=== PATIENT | female | born 1990 | race Caucasian/White ===

== ENCOUNTER 2019-10-09 19:25 | Emergency (ER) | payer BC ==
[2019-10-09] MEDS ORDERED: diphenhydrAMINE 50 MG CAP PO STA (20:44)
[2019-10-09] MEDS ORDERED: predniSONE 50 MG TAB PO STA (20:44)
[2019-10-09] MEDS ORDERED: FAMOTIDINE 20 MG TAB PO STA (20:45)
--- NOTE | 2019-10-09 20:51 | ED ---
General Adult HPI - General Chief complaint: Allergic Reaction Stated complaint: Allergic reaction Time Seen by Provider: 10/09/19 20:37 Source: patient, family, RN notes reviewed Mode of arrival: ambulatory Limitations: no limitations - History of Present Illness Initial comments: Patient is a pleasant 29-year-old female presenting to the emergency department with concerns for ALLERGIC reaction. Patient received cimzia from her fountain waitress/waiter. Patient states several hours later she started developing hives. Patient states hives are waxing and waning and are mostly on her back. Patient feels slightly swollen and her face. No dyspnea. No swelling of the throat or tongue or lips. No history of similar symptoms previously. Patient received her injection close to 12 hours ago. - Related Data Previous Rx's Medication Instructions Recorded predniSONE 20 mg PO BID #10 tab 10/09/19 Allergies Allergy/AdvReac Type Severity Reaction Status Date / Time certolizumab pegol Allergy Rash/Hives Verified 10/09/19 20:19 [From Cimzia] Review of Systems ROS Statement: Those systems with pertinent positive or pertinent negative responses have been documented in the HPI. ROS Other: All systems not noted in ROS Statement are negative. Constitutional: Denies: fever Eyes: Denies: eye pain ENT: Denies: ear pain Respiratory: Denies: cough Cardiovascular: Denies: chest pain Endocrine: Denies: fatigue Gastrointestinal: Denies: abdominal pain Genitourinary: Denies: dysuria Musculoskeletal: Denies: back pain Skin: Reports: rash Neurological: Denies: weakness Past Medical History Past Medical History: Rheumatoid Arthritis (RA) Additional Past Medical History / Comment(s): vit D, iron, carpal tunnel History of Any Multi-Drug Resistant Organisms: None Reported Past Surgical History: No Surgical Hx Reported Past Psychological History: No Psychological Hx Reported Smoking Status: Light tobacco smoker Past Alcohol Use History: Occasional Past Drug Use History: None Reported General Exam Limitations: no limitations General appearance: alert, in no apparent distress Head exam: Present: normocephalic Eye exam: Present: normal appearance, PERRL ENT exam: Present: normal oropharynx, other (There may be a trace amount of swelling of the upper maxillary region) Neck exam: Present: normal inspection Respiratory exam: Present: normal lung sounds bilaterally Cardiovascular Exam: Present: regular rate, normal rhythm GI/Abdominal exam: Present: soft. Absent: tenderness Extremities exam: Present: normal inspection Neurological exam: Present: alert Psychiatric exam: Present: normal affect, normal mood Skin exam: Present: urticaria (Mild urticarial rash on the back) Course Vital Signs 10/09/19 20:13 Temperature 98.6 F Pulse Rate 113 H Respiratory 18 Rate Blood Pressure 129/92 O2 Sat by Pulse 96 Oximetry Disposition Clinical Impression: Allergic reaction Disposition: HOME SELF-CARE Condition: Stable Instructions (If sedation given, give patient instructions): General Allergic Reaction (ED) Additional Instructions: Please do not receive injections of this medication again until discussion with your fountain waitress/waiter. Return for difficulty breathing, swelling of the throat or tongue or lips, worsening symptoms or other concerns. Continue Benadryl 25-50 mg every 6 hours for the next 5 days. Prescription sent to [facility] pharmacy on the [address]. Prescriptions: predniSONE 20 mg PO BID #10 tab Is patient prescribed a controlled substance at d/c from ED?: No Referrals: Presley Gallegos MD [Primary Care Provider] - 1-2 days Time of Disposition: 20:49
[2019-10-09 22:33] VITALS: RESP 20
[2019-10-10 00:04] VITALS: BP 123/77; PULSE 90
[2019-10-10 00:10] VITALS: TEMP 98.4
== END 2019-10-10 00:10 | disposition home or self-care (01) ==
LOC: EC 19:25
DX: T78.40XA Allergy, unspecified, initial encounter (principal); F17.210 Nicotine dependence, cigarettes, uncomplicated; Z88.8 Allergy status to other drugs, medicaments and biological substances
CPT/HCPCS: 99283; J7512

== ENCOUNTER 2020-03-21 22:47 | Emergency (ER) | payer BC, OTHER ==
[2020-03-21 23:04] VITALS: BP 134/92; PULSE 100; RESP 18; TEMP 99
[2020-03-21] MEDS ORDERED: methylPREDNISolone SOD SUCCI 125 MG/2 ML VIAL IM ONE (23:40)
[2020-03-21] MEDS ORDERED: KETOROLAC 30 MG/ML 1 ML VIAL IM STA (23:40)
--- NOTE | 2020-03-22 00:03 | ED ---
General Adult HPI - General Chief complaint: Extremity Problem,Nontraumatic Stated complaint: Pain in Feet Time Seen by Provider: 03/21/20 23:14 Source: patient, family Mode of arrival: wheelchair Limitations: no limitations - History of Present Illness Initial comments: 30-year-old female patient presents to the emergency department today for evaluation of bilateral ankle pain and swelling. Patient states she is also having pain to her shoulders and hips. Patient does have a history of rheumatoid arthritis, not currently on any maintenance medications. States that she does see a echo vascular tech however she is trying to conceive and therefore unable to take anything. States she has been taking up to 2g of ibuprofen daily without relief. She is reporting swelling to the bilateral ankles. Denies any fever or chills. Denies any calf pain or tenderness. Denies history of DVT. Patient denies any recent rash, cough, shortness of breath, chest pain, abdominal pain, nausea, vomiting, diarrhea, constipation, back pain, numbness, tingling, dizziness, weakness, hematuria, dysuria, urinary urgency, urinary frequency, headache, visual changes, or any other complaints. - Related Data Previous Rx's Medication Instructions Recorded predniSONE [Deltasone] 20 mg PO BID #10 tab 10/09/19 Ketorolac [Toradol] 10 mg PO Q6HR #12 tab 03/22/20 predniSONE 50 mg PO DAILY #5 tablet 03/22/20 Allergies Allergy/AdvReac Type Severity Reaction Status Date / Time certolizumab pegol Allergy Rash/Hives Verified 03/21/20 23:04 [From Harleen] Review of Systems ROS Statement: Those systems with pertinent positive or pertinent negative responses have been documented in the HPI. ROS Other: All systems not noted in ROS Statement are negative. Past Medical History Past Medical History: Rheumatoid Arthritis (RA) Additional Past Medical History / Comment(s): vit D, iron, carpal tunnel History of Any Multi-Drug Resistant Organisms: None Reported Past Surgical History: No Surgical Hx Reported Past Psychological History: Anxiety Smoking Status: Light tobacco smoker Past Alcohol Use History: Occasional Past Drug Use History: None Reported General Exam Limitations: no limitations General appearance: alert, in no apparent distress, other (This is a well- developed, well-nourished adult female patient in no acute distress. Vital signs upon presentation are temperature 99.0F, pulse 100, respirations 18, blood pressure 134/92, pulse ox 100% on room air.) Respiratory exam: Present: normal lung sounds bilaterally. Absent: respiratory distress, wheezes, rales, rhonchi, stridor Cardiovascular Exam: Present: regular rate, normal rhythm, normal heart sounds. Absent: systolic murmur, diastolic murmur, rubs, gallop, clicks GI/Abdominal exam: Present: soft, normal bowel sounds. Absent: distended, tenderness, guarding, rebound, rigid Extremities exam: Present: full ROM, normal capillary refill, other (Patient has bilateral ankle swelling. Skin is otherwise pink, warm, dry. Cap refills less than 3 seconds. Pedal and posttibial pulses are 2+ and equal bilaterally.). Absent: normal inspection, tenderness, pedal edema, joint swelling, calf tenderness Neurological exam: Present: alert, oriented X3, CN II-XII intact Psychiatric exam: Present: normal affect, normal mood Skin exam: Present: warm, dry, intact, normal color. Absent: rash Course Vital Signs 03/21/20 23:01 Temperature 99.0 F Pulse Rate 100 Respiratory 18 Rate Blood Pressure 134/92 O2 Sat by Pulse 100 Oximetry Medical Decision Making - Medical Decision Making 30-year-old female patient presents to the emergency department today for evaluation of bilateral ankle pain and swelling. She is also reporting shoulder pain and hip pain. Physical examination did reveal swelling to the bilateral ankles. No erythema. Good neurovascular status. test was negative. We will start patient on a course of steroids and Toradol for symptom relief. She is educated not to take the ibuprofen and Toradol to same time. She is instructed to take all medications with meals. She is instructed to follow up with a echo vascular tech for further evaluation as soon as possible. Return parameters were discussed in detail. She verbalizes understanding and agrees with this plan. - Lab Data Lab Results 03/21/20 Range/Units 23:24 Urine HCG, Qual Not Detected (Not Detectd) Disposition Clinical Impression: Rheumatoid arthritis flare Disposition: HOME SELF-CARE Condition: Good Instructions (If sedation given, give patient instructions): Rheumatoid Arthritis (ED) Additional Instructions: Take medications as directed. Follow-up with your primary care physician echo vascular tech for further evaluation as soon as possible. Take your medications with food. Return to the emergency department immediately for any new, worsening, or concerning symptoms. Prescriptions: predniSONE 50 mg PO DAILY #5 tablet Ketorolac [Toradol] 10 mg PO Q6HR #12 tab Is patient prescribed a controlled substance at d/c from ED?: No Referrals: Presley Gallegos MD [Primary Care Provider] - 1-2 days Time of Disposition: 00:03
== END 2020-03-22 00:36 | disposition home or self-care (01) ==
LOC: EC 22:47
DX: M06.9 Rheumatoid arthritis, unspecified (principal); F17.200 Nicotine dependence, unspecified, uncomplicated; Z88.8 Allergy status to other drugs, medicaments and biological substances
CPT/HCPCS: 96372 ×2; 99283; 81025; J2930; J1885

== ENCOUNTER → 2022-03-19 | Outpatient (CLI) | payer OTHER ==
[2022-03-19 14:30] LABS: Basophils # (A) 0.02 X 10*3/uL (0.00-0.10); Basophils % (A) 0.3 %; Eosinophils % (A) 2.6 %; HCT 41.3 % (37.2-46.3); HGB 12.9 g/dL (12.0-15.0); Immature Grans, Automated 0.3 %; Lymphocytes # (A) 2.31 X 10*3/uL (0.90-5.00); Lymphocytes % (A) 30.2 %; MCH 25.8 pg (27.0-32.0); MCHC 31.2 g/dL (32.0-37.0); MCV 82.6 fL (80.0-97.0); Mean Platelet Volume 9.5 fL (9.5-12.2); Monocytes # (A) 0.28 X 10*3/uL (0.20-1.00); Monocytes % (A) 3.7 %; NRBC Per 100 WBC 0 /100 WBCS (0.0-0.0); Neutrophils # (A) 4.81 X 10*3/uL (1.80-7.70); Neutrophils % (A) 62.9 %; Platelet Count 543 X 10*3/uL (140-440); WBC 7.64 X 10*3/uL (4.50-10.00)
[2022-03-19 15:00] LABS: ALT 13 U/L (8-44); AST 13 U/L (13-35); African American GFR (CKD) 135.3 (60.0-200.0); Albumin 4.2 g/dL (3.8-4.9); Albumin/Globulin Ratio 1.42 (1.60-3.17); Alkaline Phosphatase 87 U/L (41-126); BUN/Creat Ratio 9.46 Ratio (12.00-20.00); Blood Urea Nitrogen 6.5 mg/dL (9.0-27.0); Calcium 9.8 mg/dL (8.7-10.3); Carbon Dioxide 23.8 mmol/L (20.0-27.5); Chloride 102 mmol/L (96-109); Globulin 2.9 g/dL (1.6-3.3); Glucose 99 mg/dL (70-110); Non-African American GFR(CKD) 116.8 (60.0-200.0); Potassium 4.7 mmol/L (3.5-5.5); Sodium 138 mmol/L (135-145); Total Protein 7.1 g/dL (6.2-8.2)
[2022-03-19 15:17] LABS: Testosterone <2.50 ng/mL (9.01-47.94)
== END | disposition home or self-care (01) ==
LOC: LABWHC1 10:01
PROVIDERS: ATTEND Obstetrics & Gynecology Reproductive Endocrinology
DX: Z31.41 Encounter for fertility testing (principal)
CPT/HCPCS: 36415; 80053; 82306; 83036; 84403; 85025

== ENCOUNTER → 2022-05-08 | Outpatient (CLI) | payer OTHER ==
--- NOTE | 2022-05-08 08:27 | US ---
EXAMINATION TYPE: US transvaginal DATE OF EXAM: 05/08/2022 COMPARISON: NONE CLINICAL HISTORY: Z31.83 ENCOUNTER FOR ASSISTED REPRODCTV FERTILITY. faxed results to clinic as reque sted TECHNIQUE: . Transvaginal sonographic images of the pelvis were acquired. EXAM MEASUREMENTS: Uterus: 6.4 x 3.6 x 3.9 cm Endometrial Stripe: 0.3 cm Right Ovary: 2.7 x 1.7 x 1.6 cm Left Ovary: 2.9 x 2.5 x 1.6 cm 1. Uterus: Retroverted somewhat heterogeneous and attenuating retroverted uterine fundus, possible s mall 7mm fibroid within the mid uterine body 2. Endometrium: wnl 3. Right Ovary: 5 follicles seen, measuring 4 x 5 x 3mm, 7 x 5 x 7mm, 6 x 5 x7 mm, 7 x 4 x 7mm and 5 x 4 x 5mm 4. Left Ovary: 4 follicles seen, measuring 11 x 7 x 9mm, 8 x 7 x 6mm, 8 x 4 x 6mm and 7 x 4 x 8mm 5. Bilateral Adnexa: wnl 6. Posterior cul-de-sac: no free fluid seen IMPRESSION: 1. Suspect small layering this change. 2. Follicular changes of the ovaries as noted above.
[2022-05-08 09:33] LABS: HCG,Quantitative Serum <2.4 mIU/mL
[2022-05-08 15:30] LABS: Estradiol 42.1 pg/mL; Follicle Stimulating Hormone 5.5 mIU/mL; Luteinizing Hormone 6.2 mIU/mL
== END | disposition home or self-care (01) ==
LOC: RADUSWWP 07:34
PROVIDERS: ATTEND Obstetrics & Gynecology Reproductive Endocrinology
DX: Z31.83 Encounter for assisted reproductive fertility procedure cycle (principal)
CPT/HCPCS: 76830; 82670; 83001; 83002; 84144; 84443; 84702

== ENCOUNTER → 2022-05-11 | Outpatient (CLI) | payer OTHER ==
--- NOTE | 2022-05-11 07:47 | US ---
EXAMINATION TYPE: US transvaginal DATE OF EXAM: 05/11/2022 COMPARISON: recent US TV CLINICAL HISTORY: Z31.83 ENCOUNTER FOR ART PROCEDURE. follicle study TECHNIQUE: . Transvaginal sonographic images of the pelvis were acquired. EXAM MEASUREMENTS: Uterus: 6.4 x 3.4 x 4.0 cm Endometrial Stripe: 0.7 cm Right Ovary: 3.7 x 1.8 x 2.4 cm Left Ovary: 3.2 x 1.7 x 3.0 cm 1. Uterus: retroverted 1.1 x 1.1 0.8cm fibroid at the left fundal uterine body, obscured by bowel o n previous ultrasound 2. Endometrium: wnl 3. Right Ovary: 7 follicles seen, measuring 6l4f9ie, 2t5o3ds, 3e8n0nm, 9p6r6pw, 2a2d9ml, 84y1a0xh, a nd 0j9o8mi 4. Left Ovary: 5 follicles seen, measuring [id number], 41h1y81py, 9u1e6sd, 7t5e9gj and 0k3j0yp 5. Bilateral Adnexa: wnl 6. Posterior cul-de-sac: no free fluid seen IMPRESSION: 1. Leiomyomatous change of the uterus. 2. Multiple bilateral ovarian follicles noted.
[2022-05-11 11:35] LABS: Luteinizing Hormone 2.1 mIU/mL
== END | disposition home or self-care (01) ==
LOC: RADUSWWP 06:54
PROVIDERS: ATTEND Obstetrics & Gynecology Reproductive Endocrinology
DX: Z31.83 Encounter for assisted reproductive fertility procedure cycle (principal); D25.9 Leiomyoma of uterus, unspecified
CPT/HCPCS: 76830; 82670; 83002; 84144

== ENCOUNTER → 2022-05-14 | Outpatient (CLI) | payer OTHER ==
--- NOTE | 2022-05-14 08:08 | US ---
EXAMINATION TYPE: US transvaginal DATE OF EXAM: 05/14/2022 COMPARISON: NONE CLINICAL HISTORY: 32-year-old female Z31.83 ASSISTED REPRODCTV FERTILITY. A follicle study TECHNIQUE: Transvaginal (TV). FINDINGS: EXAM MEASUREMENTS: Uterus: 7.1 x 3.7 x 4.6 cm Endometrial Stripe: 0.8 cm Right Ovary: 4.0 x 2.3 x 1.7 cm for a volume of 8.3 mL. Left Ovary: 4.3 x 2.4 x 2.4 cm for a volume of 13.1 mL. 1. Uterus: Retroverted. posterior fundal/uterine body left sided fibroid measuring 1.1 x 0.8 x 1.1cm . This is primarily intramural. 2. Endometrium: wnl 3. Right Ovary: 7 follicles seen, measuring 13 x 12x 10mm, 8 x 8 x 8mm, 14 x 12 x 12mm, 7 x 6 x 7mm, 14 x 12 x 15mm, 15 x 10 x 14mm, 6 x 5 x 5mm 4. Left Ovary: 5 follicles seen, measuring 22 x 19 x 20mm, 10 x 12 x 9mm, 12 x 17 x 14mm, 8 x 8 x 7m m, 8 x 9 x 10mm 5. Bilateral Adnexa: wnl 6. Posterior cul-de-sac: no fluid seen IMPRESSION: 1. Retroverted uterus. There is a posterior fundal/uterine body fibroid measuring 1.1 cm. 2. Follicular change in the ovaries. Ovarian size measuring up to 13.1 mL. 7 follicles measuring up t o 1.5 cm on the right and 5 on the left measuring up to 2.2 cm.
[2022-05-14 11:34] LABS: Luteinizing Hormone 2.5 mIU/mL
== END | disposition home or self-care (01) ==
LOC: RADUSWWP 06:41
PROVIDERS: ATTEND Obstetrics & Gynecology Reproductive Endocrinology
DX: Z31.83 Encounter for assisted reproductive fertility procedure cycle (principal)
CPT/HCPCS: 76830; 82670; 83002; 84144

== ENCOUNTER → 2022-05-16 | Outpatient (CLI) | payer OTHER ==
--- NOTE | 2022-05-16 08:21 | US ---
EXAMINATION TYPE: US transvaginal DATE OF EXAM: 05/16/2022 COMPARISON: 05/11/2022, 05/14/2022 CLINICAL HISTORY: 32-year-old female Z31.83 ASSISTED REPRODUCTIVE FERTILITY. Follicle study for harve sting TECHNIQUE: Transvaginal sonographic images of the pelvis were acquired. FINDINGS: EXAM MEASUREMENTS: Uterus: 8.0 x 3.4 x 4.6 cm Endometrial Stripe: 0.84 cm Right Ovary: 4.9 x 2.9 x 3.5 cm for a volume of 25.9 mL (versus 8.3 mL, previously) Left Ovary: 5.1 x 2.9 x 3.1 cm for a volume of 23.7 mL (versus 13.1 mL, previously) 1. Uterus: Retroverted. 1.3 x 0.9 x 1.4cm fibroid on the left at the level of the fundus/body 2. Endometrium: 0.84, fluid within the endometrial cavity at the JULES and cervix 3. Right Ovary: 7 follicles seen, measuring 41g80f69tl, 04d18j55, 6i2u1ku, 57a22z56vs, 6h7x8fm, 12x1 2x12mm, and 83l61r70lq. 4. Left Ovary: 6 follicles seen, measuring 52d27f52gt, 94j4x73fa, 37y8z8wz, 65o2u1fl,w12n1v90sm, and 22a71g44pe 5. Bilateral Adnexa: wnl 6. Posterior cul-de-sac: no free fluid seen IMPRESSION: Prominent follicular change in both ovaries which are increasing in size. On the right, follicles cirilo sure up to 2.1 cm and on the left, up to 2.8 cm as outlined above.
[2022-05-16 11:20] LABS: Luteinizing Hormone 3.4 mIU/mL
== END | disposition home or self-care (01) ==
LOC: RADUSWWP 06:41
PROVIDERS: ATTEND Obstetrics & Gynecology Reproductive Endocrinology
DX: Z31.83 Encounter for assisted reproductive fertility procedure cycle (principal)
CPT/HCPCS: 76830; 82670; 83002; 84144

== ENCOUNTER → 2022-05-28 | Outpatient (CLI) | payer OTHER | END | disposition home or self-care (01) | LOC: LABWHC1 07:07 | PROVIDERS: ATTEND Obstetrics & Gynecology Reproductive Endocrinology | DX: Z31.49 Encounter for other procreative investigation and testing (principal) | CPT/HCPCS: 36415; 82670; 84144 ==

== ENCOUNTER → 2022-06-02 | Outpatient (CLI) | payer OTHER | END | disposition home or self-care (01) | LOC: LABWHC1 07:58 | PROVIDERS: ATTEND Obstetrics & Gynecology Reproductive Endocrinology | DX: Z32.00 Encounter for pregnancy test, result unknown (principal) | CPT/HCPCS: 36415; 84144; 84702 ==

== ENCOUNTER → 2022-06-05 | Outpatient (CLI) | payer OTHER | END | disposition home or self-care (01) | LOC: LABWHC1 07:22 | PROVIDERS: ATTEND Obstetrics & Gynecology Reproductive Endocrinology | DX: Z32.00 Encounter for pregnancy test, result unknown (principal) | CPT/HCPCS: 36415; 84144; 84702 ==

== ENCOUNTER → 2022-06-08 | Outpatient (CLI) | payer OTHER ==
[2022-06-08 08:32] LABS: HCG,Quantitative Serum 21.1 mIU/mL
== END | disposition home or self-care (01) ==
LOC: LABWHC1 07:04
PROVIDERS: ATTEND Obstetrics & Gynecology Reproductive Endocrinology
DX: Z32.01 Encounter for pregnancy test, result positive (principal)
CPT/HCPCS: 36415; 82670; 84144; 84702

== ENCOUNTER → 2022-06-11 | Outpatient (CLI) | payer OTHER ==
[2022-06-11 07:57] LABS: HCG,Quantitative Serum 37.7 mIU/mL
== END | disposition home or self-care (01) ==
LOC: LABWHC1 07:05
PROVIDERS: ATTEND Obstetrics & Gynecology Reproductive Endocrinology
DX: Z32.01 Encounter for pregnancy test, result positive (principal); Z3A.00 Weeks of gestation of pregnancy not specified
CPT/HCPCS: 36415; 82670; 84144; 84443; 84702

== ENCOUNTER → 2022-06-13 | Outpatient (CLI) | payer OTHER ==
--- NOTE | 2022-06-13 11:50 | US ---
EXAMINATION TYPE: Transabdominal DATE OF EXAM: 06/13/2022 10:41 AM COMPARISON: NONE CLINICAL HISTORY: O36.80 Fetus Viability. EXAM PERFORMED: Transvaginal (TV) and Transabdominal (TA) EXAM MEASUREMENTS: GESTATIONAL AGE / DATING Physician Established: Not yet established Dates by LMP: LMP unknown Dates by First Scan: No previous this is first scan Dates by Current Scan for: No IUP seen at this time MATERNAL ANATOMY Uterus: 7.3 x 4.0 x 4.4cm Right Ovary: 3.0 x 1.3 x 2.0cm Left Ovary: 2.7 x 1.6 x 2.1cm Post CDS / Adnexa: small amount of free fluid in right adnexa Presence of free fluid: yes Presence of corpus luteal cyst: not seen Presence of subchorionic bleed: no GESTATION / SURVEY IUP: No IUP seen at this time Date of LMP: Unknown IMPRESSION: No evidence of intrauterine . No definitive extrauterine identified. Correlate wit h beta-hCG.
== END | disposition home or self-care (01) ==
LOC: RADUSWWP 09:59
PROVIDERS: ATTEND Obstetrics & Gynecology Reproductive Endocrinology
DX: O36.80X0 Pregnancy with inconclusive fetal viability, not applicable or unspecified (principal)
CPT/HCPCS: 76801

== ENCOUNTER → 2022-06-13 | Outpatient (CLI) | payer OTHER ==
[2022-06-13 08:09] LABS: HCG,Quantitative Serum 63.9 mIU/mL
== END | disposition home or self-care (01) ==
LOC: LABWHC1 07:02
PROVIDERS: ATTEND Obstetrics & Gynecology Reproductive Endocrinology
DX: Z32.01 Encounter for pregnancy test, result positive (principal)
CPT/HCPCS: 36415; 82670; 84144; 84702

== ENCOUNTER → 2022-06-15 | Outpatient (CLI) | payer OTHER | END | disposition home or self-care (01) | LOC: LABWHC1 06:55 | PROVIDERS: ATTEND Obstetrics & Gynecology Reproductive Endocrinology | DX: Z32.01 Encounter for pregnancy test, result positive (principal) | CPT/HCPCS: 36415; 82670; 84144; 84702 ==

== ENCOUNTER → 2022-06-18 | Outpatient (CLI) | payer OTHER ==
[2022-06-18 07:59] LABS: HCG,Quantitative Serum 347.2 mIU/mL
--- NOTE | 2022-06-18 11:37 | US ---
EXAMINATION TYPE: Ultrasound OB <= 14 weeks transvaginal DATE OF EXAM: 06/18/2022 10:52 AM COMPARISON: 06/13/2022 CLINICAL HISTORY: 32-year-old female O36.80 Fetus Viability. Viability. Pt has been having light brow n spotting. . EXAM PERFORMED: Transabdominal (TA) FINDINGS: EXAM MEASUREMENTS: GESTATIONAL AGE / DATING Physician Established: Not yet established. Dates by LMP: LMP unknown Dates by First Scan: No IUP seen on last scan. Dates by Current Scan for: No IUP seen at this time. MATERNAL ANATOMY Uterus: 8.2 x 5.1 x 4.2 cm. Retroverted. Endometrium measures 1.1 cm thick. Some cystic areas at the level of the cervix measuring up to 6 mm were present previously, likely cervical nabothian cyst. Right Ovary: 2.9 x 1.8 1.5 cm. Appears wnl Left Ovary: 2.4 x 1.6 x 1.4 cm. Appears wnl, slightly limited visibility. Post CDS / Adnexa: Fluid seen. Presence of free fluid: Yes. Mild free fluid seen in cul de sac and right adnexa. Presence of corpus luteal cyst: No Presence of subchorionic bleed: No GESTATION / SURVEY IUP: No IUP seen at this time Date of LMP: Unknown Beta HcG (if available): Not available at this time IMPRESSION: 1. No visualized intrauterine . Differential considerations in the setting of a positive pre gnancy test include failed , nonvisualized ectopic , and too early to visualize int rauterine . Correlate with serial beta hCG and ultrasound follow-up as clinically indicated. 2. Mild cul-de-sac and right adnexal free fluid probably physiologic.
== END | disposition home or self-care (01) ==
LOC: RADUSWWP 06:56
PROVIDERS: ATTEND Obstetrics & Gynecology Reproductive Endocrinology
DX: O36.80X0 Pregnancy with inconclusive fetal viability, not applicable or unspecified (principal)
CPT/HCPCS: 76801; 76817; 82670; 84144; 84702

== ENCOUNTER → 2022-06-22 | Outpatient (CLI) | payer OTHER ==
--- NOTE | 2022-06-22 16:35 | US ---
EXAMINATION TYPE: Transabdominal DATE OF EXAM: 06/22/2022 4:08 PM COMPARISON: CLINICAL HISTORY: [id number]. Fertility patient with IVF transfer 05/22/2022. EXAM PERFORMED: Transvaginal (TV) and Transabdominal (TA) EXAM MEASUREMENTS: GESTATIONAL AGE / DATING Physician Established: Not yet established Dates by LMP: IVF patient Dates by Current Scan for: ( 4 weeks/6 days) EDC: 02/23/2023 MATERNAL ANATOMY Uterus: 8.0 x 4.6 x 3.9 Right Ovary: 3.1 x 1.7 x 1.9 cm Left Ovary: 2.8 x 1.8 x 1.4 cm Post CDS / Adnexa: free fluid in cul de sac and adjacent to right ovary Presence of corpus luteal cyst: possible left ovary- 0.7 x 0.7 x 0.6 cm Presence of subchorionic bleed: no GESTATION / SURVEY CRL: No CRL seen MSD: (4 weeks/6 days) Yolk Sac (normal less than 6mm): not visualized IUP: GS visualized within endometrial canal Nuchal Translucency 10-14wks (normal less than 3mm): Date of LMP: IVF patient, unknown LMP. Fresh 3 day transfer 05/22/2022 Beta HcG (if available): 06/22/2022: 1137.1 Possible gestational sac visualized within endometrial canal. No YS or CRL visualized at time of sca n. IMPRESSION: Early normal IUP difficult to exclude. Correlate clinically and with serial beta hCG and/or ultrasoun d.
== END | disposition home or self-care (01) ==
LOC: RADUSWWP 15:32
PROVIDERS: ATTEND Obstetrics & Gynecology Reproductive Endocrinology
DX: Z32.00 Encounter for pregnancy test, result unknown (principal); Z3A.01 Less than 8 weeks gestation of pregnancy
CPT/HCPCS: 76801; 76817

== ENCOUNTER → 2022-06-22 | Outpatient (CLI) | payer OTHER ==
[2022-06-22 08:10] LABS: HCG,Quantitative Serum 1137.1 mIU/mL
== END | disposition home or self-care (01) ==
LOC: LABWHC1 07:06
PROVIDERS: ATTEND Obstetrics & Gynecology Reproductive Endocrinology
DX: Z32.00 Encounter for pregnancy test, result unknown (principal)
CPT/HCPCS: 36415; 82670; 84144; 84702

== ENCOUNTER → 2022-06-29 | Outpatient (CLI) | payer OTHER ==
[2022-06-29 08:51] LABS: HCG,Quantitative Serum 2966.2 mIU/mL
== END | disposition home or self-care (01) ==
LOC: LABWHC1 07:28
PROVIDERS: ATTEND Obstetrics & Gynecology Reproductive Endocrinology
DX: Z32.00 Encounter for pregnancy test, result unknown (principal)
CPT/HCPCS: 36415; 82670; 84144; 84702

== ENCOUNTER → 2022-06-29 | Outpatient (CLI) | payer OTHER ==
--- NOTE | 2022-06-29 13:47 | US ---
EXAMINATION TYPE: Transabdominal DATE OF EXAM: 06/29/2022 1:20 PM COMPARISON: NONE CLINICAL HISTORY: Z32.00 ENCOUNTER FOR TEST, RESULT UNKNOW. IVF patient with beta that is n ot rising fast enough and bleeding with clots started today, G1 EXAM PERFORMED: OBTA/OBTV EXAM MEASUREMENTS: GESTATIONAL AGE / DATING Physician Established: Not yet established Dates by LMP: LMP unknown Dates by First Scan: ( 4 weeks/6 days) EDC: 02/23/2023 Dates by Current Scan for: (5 weeks/0 days) EDC: 03/01/2023 MATERNAL ANATOMY Uterus: 8.1 x 3.8 x 4.3cm Right Ovary: 2.6 xx 1.7 x 1.9cm Left Ovary: not seen today Post CDS / Adnexa: wnl Presence of free fluid: no Presence of corpus luteal cyst: not seen Presence of subchorionic bleed: no GESTATION / SURVEY CRL: not seen today MSD: 0.5cm (5 weeks/0 days) Yolk Sac (normal less than 6mm): not seen IUP: possible gestational sac seen Beta HcG (if available): 2900, 1 week ago = 1137 IMPRESSION: The findings may reflect normal early IUP. Correlate clinically and with serial beta hCG and/or ultra sound.
== END | disposition home or self-care (01) ==
LOC: RADUSWWP 12:53
PROVIDERS: ATTEND Obstetrics & Gynecology Reproductive Endocrinology
DX: Z32.00 Encounter for pregnancy test, result unknown (principal); Z3A.01 Less than 8 weeks gestation of pregnancy
CPT/HCPCS: 76801; 76817

== ENCOUNTER → 2022-07-06 | Outpatient (CLI) | payer OTHER | END | disposition home or self-care (01) | LOC: LABWHC1 06:58 | PROVIDERS: ATTEND Obstetrics & Gynecology Reproductive Endocrinology | DX: Z32.01 Encounter for pregnancy test, result positive (principal) | CPT/HCPCS: 36415; 84702 ==

== ENCOUNTER → 2022-07-13 | Outpatient (CLI) | payer OTHER | END | disposition home or self-care (01) | LOC: LABWHC1 07:17 | PROVIDERS: ATTEND Obstetrics & Gynecology Reproductive Endocrinology | DX: Z32.01 Encounter for pregnancy test, result positive (principal); Z3A.00 Weeks of gestation of pregnancy not specified | CPT/HCPCS: 36415; 84702 ==

== ENCOUNTER → 2022-08-07 | Outpatient (CLI) | payer OTHER ==
--- NOTE | 2022-08-07 15:14 | US ---
EXAMINATION TYPE: US transvaginal DATE OF EXAM: 08/07/2022 COMPARISON: NONE CLINICAL HISTORY: Z31.83 REPRODCTV FERTILITY PROCEDURE CYCLE. IVF TECHNIQUE: Transvaginal (TV). EXAM MEASUREMENTS: Uterus: 6.7 x 3.4 x 3.8 cm Endometrial Stripe: .6 cm Right Ovary: 3.2 x 1.6 x 2.5 cm Left Ovary: 2.4 x 1.4 x 1.5 cm 1. Uterus: Retroverted wnl 2. Endometrium: wnl 3. Right Ovary: 4 follicles seen measurin x 13 x 13 mm, 5 x 5 x 5 mm, 10 x 8x 10 mm, 6 x 3x 5 m m. 4. Left Ovary: 5 follicles seen measurin x 10 x 10 mm, 4 x 3x 4 mm, 6 x 4 x 6 mm, 4 x 3 x 4 mm, 3 x 3x 3 mm. 5. Bilateral Adnexa: wnl 6. Posterior cul-de-sac: wnl IMPRESSION: 1. No evidence for acute process. 2. Endometrium within normal limits for thickness. 3. Bilateral ovarian follicular changes.
== END | disposition home or self-care (01) ==
LOC: RADUSWWP 12:55
PROVIDERS: ATTEND Obstetrics & Gynecology Reproductive Endocrinology
DX: Z31.83 Encounter for assisted reproductive fertility procedure cycle (principal); N83.01 Follicular cyst of right ovary; N83.02 Follicular cyst of left ovary
CPT/HCPCS: 76830

== ENCOUNTER → 2022-08-07 | Outpatient (CLI) | payer OTHER ==
[2022-08-07 09:18] LABS: HCG,Quantitative Serum <2.4 mIU/mL
[2022-08-07 11:20] LABS: Estradiol 41.4 pg/mL; Follicle Stimulating Hormone 5.4 mIU/mL; Luteinizing Hormone 5.3 mIU/mL
== END | disposition home or self-care (01) ==
LOC: LABWHC1 07:19
PROVIDERS: ATTEND Obstetrics & Gynecology Reproductive Endocrinology
DX: Z31.83 Encounter for assisted reproductive fertility procedure cycle (principal); E28.9 Ovarian dysfunction, unspecified
CPT/HCPCS: 36415; 82670; 83001; 83002; 84144; 84443; 84702

== ENCOUNTER → 2022-08-13 | Outpatient (CLI) | payer OTHER ==
--- NOTE | 2022-08-13 08:16 | US ---
EXAMINATION TYPE: US transvaginal DATE OF EXAM: 08/13/2022 COMPARISON: US 6 days ago. CLINICAL HISTORY: Z31.83 REPRODCTV FERTILITY PROCEDURE CYCLE. Fertility scan TECHNIQUE: Transvaginal (TV). Transvaginal sonographic images of the pelvis were acquired. EXAM MEASUREMENTS: Uterus: 7.7 x 3.7 x 4.4 cm Endometrial Stripe: 1.0 cm Right Ovary: 3.0 x 2.2 x 1.6 cm Left Ovary: 2.7 x 2.6 x 1.9 cm 1. Uterus: Retroverted wnl, Nabothian cysts in cervix 2. Endometrium: wnl, trilaminar 3. Right Ovary: Five follicles visualized- 15 x 10 x 15 mm, 5 x 3 x 5 mm, 8 x 4 x 6 mm, 5 x 4 x 4 mm, 4 x 3 x 5 mm 4. Left Ovary: Five follicles visualized- 10 x 9 x 9 mm, 5 x 5 x 7 mm, 7 x 6 x 6 mm, 9 x 6 x 7 mm , 7 x 6 x 5 mm 5. Bilateral Adnexa: wnl 6. Posterior cul-de-sac: Small amount of free fluid Retroverted uterus with nabothian cysts in the cervix is redemonstrated. Endometrial stripe within no rmal limits and slightly thicker versus recent prior study. Trace free fluid in pelvis is noted presu med physiologic. Ovaries are symmetric and normal in size with scattered peripheral follicles as noted above. IMPRESSION: As above.
== END | disposition home or self-care (01) ==
LOC: RADUSWWP 06:58
PROVIDERS: ATTEND Obstetrics & Gynecology Reproductive Endocrinology
DX: Z31.83 Encounter for assisted reproductive fertility procedure cycle (principal); N88.8 Other specified noninflammatory disorders of cervix uteri
CPT/HCPCS: 76830; 82672; 83002; 84144

== ENCOUNTER → 2022-08-22 | Outpatient (CLI) | payer OTHER | END | disposition home or self-care (01) | LOC: LABWHC1 07:04 | PROVIDERS: ATTEND Obstetrics & Gynecology Reproductive Endocrinology | DX: Z31.49 Encounter for other procreative investigation and testing (principal) | CPT/HCPCS: 36415; 82670; 84144 ==

== ENCOUNTER → 2022-08-28 | Outpatient (CLI) | payer OTHER | END | disposition home or self-care (01) | LOC: LABWHC1 07:00 | PROVIDERS: ATTEND Obstetrics & Gynecology Reproductive Endocrinology | DX: Z32.00 Encounter for pregnancy test, result unknown (principal) | CPT/HCPCS: 36415; 84144; 84702 ==

== ENCOUNTER → 2022-09-04 | Outpatient (CLI) | payer OTHER ==
[2022-09-04 08:16] LABS: HCG,Quantitative Serum <2.4 mIU/mL
[2022-09-04 11:13] LABS: Estradiol 73.3 pg/mL; Luteinizing Hormone 7.5 mIU/mL
--- NOTE | 2022-09-04 11:55 | US ---
EXAMINATION TYPE: US transvaginal DATE OF EXAM: 09/04/2022 COMPARISON: US 08/13/2022 CLINICAL HISTORY: Z31.83 REPRODCTV FERTILITY PROCEDURE CYCLE. Fertility patient. TECHNIQUE: Transvaginal (TV). Date of LMP: 09/01/2022 EXAM MEASUREMENTS: Uterus: 7.6 x 4.6 x 3.6 cm Endometrial Stripe: 0.55 cm Right Ovary: 3.4 x 2.3 x 2.0 cm Left Ovary: 3.2 x 1.4 x 2.1 cm 1. Uterus: Retroverted incidental nabothian cysts. 2. Endometrium: 0.55 cm. 3. Right Ovary: 4 follicles visualized-13 x 11 x 10 mm, 9 x 7 x 7 mm, 10 x 9 x 9 mm, and 6 x 6 x 5 m m. 4. Left Ovary: 4 follicles visualized-10 x 8 x 7 mm, 7 x 6 x 3 mm, 11 x 9 x 9 mm, and 8 x 6 x 5 mm. 5. Bilateral Adnexa: Free fluid seen in right adnexa. 6. Posterior cul-de-sac: Fluid seen. Retroverted uterus with nabothian cysts in the cervix redemonstrated. Endometrial stripe within alecia l limits and decreased from prior examination. Trace free fluid in the pelvis, likely physiologic. Ovaries are symmetric and normal size with scattered peripheral follicles as noted above. IMPRESSION: As above.
== END | disposition home or self-care (01) ==
LOC: RADUSWWP 07:00
PROVIDERS: ATTEND Obstetrics & Gynecology Reproductive Endocrinology
DX: Z31.83 Encounter for assisted reproductive fertility procedure cycle (principal); N88.8 Other specified noninflammatory disorders of cervix uteri
CPT/HCPCS: 76830; 82670; 83001; 83002; 84144; 84443; 84702

== ENCOUNTER → 2022-09-10 | Outpatient (CLI) | payer OTHER ==
[2022-09-10 11:00] LABS: Luteinizing Hormone 7.9 mIU/mL
--- NOTE | 2022-09-10 11:19 | US ---
EXAMINATION TYPE: US transvaginal DATE OF EXAM: 09/10/2022 COMPARISON: US CLINICAL HISTORY: Z31.83 ENCOUNTER FOR ART PROCEDURE. Fertility study TECHNIQUE: Transvaginal (TV). Transvaginal sonographic images of the pelvis were acquired. EXAM MEASUREMENTS: Uterus: 6.8 x 3.6 x 4.0 cm Endometrial Stripe: 0.8 cm Right Ovary: 3.0 x 2.2 x 1.6 cm Left Ovary: 3.1 x 2.7 x 1.7 cm 1. Uterus: Retroverted Nabothian cysts in cervix, otherwise appeared wnl 2. Endometrium: Trilaminar 3. Right Ovary: 6 follicles measures 1- 6 x 5 x 6 mm 2- 9 x 7 x 7 mm 3- 6 x 4 x 4 mm 4- 10 x 8 x 9 mm 5- 5 x 5 x 4 mm 6- 6 x 5 x 6 mm 4. Left Ovary: 5 follicles measured 1- 10 x 7 x 12 mm 2- 5 x 3 x 5 mm 3- 4 x 4 x 6 mm 4- 5 x 4 x 4 mm 5- 6 x 5 x 8 mm 5. Bilateral Adnexa: wnl 6. Posterior cul-de-sac: Small amount of free fluid IMPRESSION: Follicles in endometrium is described above
== END | disposition home or self-care (01) ==
LOC: RADUSWWP 07:00
PROVIDERS: ATTEND Obstetrics & Gynecology Reproductive Endocrinology
DX: Z31.83 Encounter for assisted reproductive fertility procedure cycle (principal)
CPT/HCPCS: 76830; 82670; 83002; 84144

== ENCOUNTER → 2022-09-19 | Outpatient (CLI) | payer OTHER | END | disposition home or self-care (01) | LOC: LABWHC1 07:06 | PROVIDERS: ATTEND Obstetrics & Gynecology Reproductive Endocrinology | DX: Z31.49 Encounter for other procreative investigation and testing (principal) | CPT/HCPCS: 36415; 82670; 84144 ==

== ENCOUNTER → 2022-09-25 | Outpatient (CLI) | payer OTHER | END | disposition home or self-care (01) | LOC: LABWHC1 06:59 | PROVIDERS: ATTEND Obstetrics & Gynecology Reproductive Endocrinology | DX: Z32.00 Encounter for pregnancy test, result unknown (principal) | CPT/HCPCS: 36415; 84144; 84702 ==

== ENCOUNTER → 2023-03-04 | Outpatient (CLI) | payer OTHER ==
[2023-03-04 08:20] LABS: HCG,Quantitative Serum <2.4 mIU/mL
[2023-03-04 11:23] LABS: Estradiol 38.6 pg/mL
[2023-03-04 12:36] LABS: Follicle Stimulating Hormone 6.4 mIU/mL
== END | disposition home or self-care (01) ==
LOC: LABWHC1 06:59
PROVIDERS: ATTEND Obstetrics & Gynecology Reproductive Endocrinology
DX: Z31.83 Encounter for assisted reproductive fertility procedure cycle (principal)
CPT/HCPCS: 36415; 82670; 83001; 83002; 84144; 84443; 84702

== ENCOUNTER → 2023-03-04 | Outpatient (CLI) | payer OTHER ==
--- NOTE | 2023-03-04 14:17 | US ---
EXAMINATION TYPE: US transvaginal DATE OF EXAM: 03/04/2023 COMPARISON: Multiple transvaginal ultrasounds most recent total 22 CLINICAL INDICATION: Female, 33 years old with history of Z31.83 ENCOUNTER FOR ART PROCEDURE; follicl e count TECHNIQUE: Transvaginal (TV). Date of LMP: 02/28/2023 EXAM MEASUREMENTS: Uterus: 6.3x3.5x4.5 cm Endometrial Stripe: 5.8 cm Right Ovary: 3.0x1.5x2.2 cm Right Follicles: 1: 7.5x6.1x7.8mm 2: 7.7x7.4x7.5mm 3: 7.5x5.4x6.2mm 4: 5.0x3.5x4.9mm Left Ovary: 3.2x1.6x2.4 cm Left Follicles: 1: 11.9x8.1x13.0mm 2: 13.6x8.4x10.5mm 3: 9.2x7.7x6.9mm 4: 6.6x3.5x4.9mm 1. Uterus: Retroverted wnl 2. Endometrium: wnl 3. Right Ovary: wnl 4. Left Ovary: wnl 5. Bilateral Adnexa: wnl 6. Posterior cul-de-sac: wnl Retroverted uterus with nabothian cysts in the cervix redemonstrated. Endometrial stripe is within no rmal limits measures up to 0.6 cm. Ovaries are symmetric and normal size with scattered peripheral fo llicles as noted above. IMPRESSION: As above.
== END | disposition home or self-care (01) ==
LOC: RADUSWWP 12:49
PROVIDERS: ATTEND Obstetrics & Gynecology Reproductive Endocrinology
DX: Z31.83 Encounter for assisted reproductive fertility procedure cycle (principal); N88.8 Other specified noninflammatory disorders of cervix uteri
CPT/HCPCS: 76830

== ENCOUNTER → 2023-03-11 | Outpatient (CLI) | payer OTHER ==
--- NOTE | 2023-03-11 08:22 | US ---
EXAMINATION TYPE: US transvaginal DATE OF EXAM: 03/11/2023 COMPARISON: NONE CLINICAL INDICATION: Female, 33 years old with history of Z31.83 ENCOUNTER FOR ASSISTED REPRODUCTIVE FERTILITY; endometrium assessment, transfer this week TECHNIQUE: TV. Transvaginal sonographic images Date of LMP: 03/04/2023 EXAM MEASUREMENTS: Uterus: 6.5 x 3.4 x 4.1cm Endometrial Stripe: 0.9 cm Right Ovary: 2.8 x 1.7 x 1.7 cm Left Ovary: 3.6 x 3.2 x 3.5 cm 1. Uterus: Retroverted wnl 2. Endometrium: trilaminar, wnl 3. Right Ovary: follicles seen, largest = 0.7 x 0.7 x 0.5cm 4. Left Ovary: 2 large follicles, 1 = 2.8 x 2.9 x 1.9cm, 2 = 2.5 x 2.1 x 1.9cm 5. Bilateral Adnexa: wnl 6. Posterior cul-de-sac: wnl IMPRESSION: Variant follicles otherwise unremarkable study and stable from previous examination.
[2023-03-11 11:35] LABS: Luteinizing Hormone 7.3 mIU/mL
== END | disposition home or self-care (01) ==
LOC: RADUSWWP 07:04
PROVIDERS: ATTEND Obstetrics & Gynecology Reproductive Endocrinology
DX: Z31.83 Encounter for assisted reproductive fertility procedure cycle (principal); N83.02 Follicular cyst of left ovary; N83.01 Follicular cyst of right ovary
CPT/HCPCS: 76830; 82670; 83002; 84144

== ENCOUNTER → 2023-03-21 | Outpatient (CLI) | payer OTHER | END | disposition home or self-care (01) | LOC: LABWHC1 06:51 | PROVIDERS: ATTEND Obstetrics & Gynecology Reproductive Endocrinology | DX: Z31.49 Encounter for other procreative investigation and testing (principal) | CPT/HCPCS: 36415; 82670; 84144 ==

== ENCOUNTER → 2023-03-27 | Outpatient (CLI) | payer OTHER | END | disposition home or self-care (01) | LOC: LABWHC1 07:07 | PROVIDERS: ATTEND Obstetrics & Gynecology Reproductive Endocrinology | DX: Z32.00 Encounter for pregnancy test, result unknown (principal) | CPT/HCPCS: 36415; 84144; 84702 ==

== ENCOUNTER → 2023-03-29 | Outpatient (CLI) | payer OTHER ==
[2023-03-29 08:43] LABS: HCG,Quantitative Serum <2.4 mIU/mL
[2023-03-29 11:30] LABS: Estradiol 75.9 pg/mL
== END | disposition home or self-care (01) ==
LOC: LABWHC1 07:08
PROVIDERS: ATTEND Obstetrics & Gynecology Reproductive Endocrinology
DX: O09.00 Supervision of pregnancy with history of infertility, unspecified trimester (principal); Z3A.00 Weeks of gestation of pregnancy not specified
CPT/HCPCS: 36415; 82670; 84144; 84443; 84702